=== PATIENT | female | born 1970 | race Caucasian/White ===

== ENCOUNTER 2021-10-15 04:34 | Day surgery (SDC) | payer BC, OTHER ==
[2021-10-10 16:32] VITALS: BMI 37.1
[2021-10-15] MEDS ORDERED: MIDAZOLAM HCL 2 MG/2 ML SINGLE DOSE VIAL ONE (07:33)
[2021-10-15] MEDS ORDERED: PROPOFOL 20 ML ONE ×2 (07:33)
[2021-10-15] MEDS ORDERED: SUCCINYLCHOLINE CHLORIDE 200 MG/10 ML SYRINGE ONE (07:33)
[2021-10-15] MEDS ORDERED: IBUPROFEN 400 MG TABLET (FP) PO PRN (07:51)
[2021-10-15] MEDS ORDERED: ACETAMINOPHEN 325 MG TABLET (FP) PO PRN (07:51)
[2021-10-15] MEDS ORDERED: FERRIC SUBSULFATE 500 ML BOTTLE TP ONE (08:40)
[2021-10-15] MEDS ORDERED: BUTORPHANOL TARTRATE 1 MG/ML VIAL IVPB PRN (08:51)
[2021-10-15] MEDS ORDERED: BUTORPHANOL TARTRATE 1 MG/ML VIAL IVPB SCH (09:00)
[2021-10-15] MEDS ORDERED: ELECTROLYTE-148 SOLN 1,000 ML IV SCH (09:00)
[2021-10-15] MEDS ORDERED: OXYTOCIN 30 UNITS in 0.9% NS 30 UNIT/500 ML INFUS.BAG IVPB SCH (09:00)
[2021-10-15 09:53] VITALS: TEMP 97.2
[2021-10-15 10:58] VITALS: BP 127/79; PULSE 79
[2021-10-15] MEDS ORDERED: ONDANSETRON 4 MG/2 ML VIAL IVPUSH PRN (11:33)
[2021-10-15] MEDS ORDERED: oxyCODONE HCL 5 MG TABLET PO PRN ×2 (11:33)
[2021-10-15] MEDS ORDERED: LACTATED RINGERS SOLUTION 1,000 ML IV SCH (11:45)
== END 2021-10-15 11:34 | disposition home or self-care (01) ==
LOC: JASU-SURG 04:34
PROVIDERS: ATTEND Obstetrics & Gynecology
PROC: 0UDB8ZX Extraction of Endometrium, Via Natural or Artificial Opening Endoscopic, Diagnostic (ICD-10-PCS; 2021-10-15)
PROC: 0UBC7ZX Excision of Cervix, Via Natural or Artificial Opening, Diagnostic (ICD-10-PCS; principal; 2021-10-15 07:30)
PROC: 0UB98ZZ Excision of Uterus, Via Natural or Artificial Opening Endoscopic (ICD-10-PCS; 2021-10-15 07:30)
DX: D06.9 Carcinoma in situ of cervix, unspecified (principal); D25.0 Submucous leiomyoma of uterus
CPT/HCPCS: 86850; 86900; 86901; 88305-TC; 88307-TC; 94760